=== PATIENT | male | born 1950 | race Caucasian/White ===

== ENCOUNTER 2018-07-01 21:01 | Emergency (ER) | payer OTHER, SELFPAY ==
[2018-07-01] VITALS (14 sets, daily range): BP systolic 113–135; BP diastolic 68–100; PULSE 70–180; RESP 13–63; TEMP 36.8; O2SAT 94–100
--- NOTE | 2018-07-01 21:12 | DI.RAD.S_ITS ---
PROCEDURE: XR CHEST 1V INDICATIONS: chest pain TECHNIQUE: One view of the chest was acquired. COMPARISON: [facility], , CHEST 1 VIEW, 05/27/2012, 13:48. FINDINGS: Surgical changes and devices: 3-lead cardiac pacer device projects over the left chest. Sternotomy wires and a prosthetic cardiac valve are noted. Multiple EKG leads and pads project over the chest. Lungs and pleura: No pleural effusions or pneumothorax. Lungs are clear. Mediastinum: Widening of the cardiac and mediastinal silhouettes is unchanged from prior exam. Bones and chest wall: No suspicious bony lesions. Overlying soft tissues appear unremarkable. IMPRESSION: #1. Unchanged widening of the cardiac and mediastinal silhouettes, which could represent cardiomegaly, pericardial effusion, or a prominent pericardial fat-pad. #2. No focal airspace disease. Dictated by: Lalo Adams M.D. on 07/01/2018 at 23:24 Approved by: Lalo Adams M.D. on 07/01/2018 at 23:25
[2018-07-01] MEDS: AMIODARONE 150 MG/100 ML PIGGYBACK 600 MG IV (21:15)
[2018-07-01 21:20] LABS: Add Manual Diff / Slide Review NO; Basophils Percent Auto 0.6 % (0-2); Eosinophils Percent Auto 1.5 % (2-4); Hemoglobin 13.4 g/dL (13.5-17.5); Lymphocytes Percent Auto 21.8 % (25-40); Mean Corpuscular HGB Conc 34.5 % (30-36); Mean Corpuscular Hemoglobin 33.9 PG (26-34); Mean Corpuscular Volume 98.3 fL (80-100); Monocytes Percent Auto 12.8 % (3-14); Neutrophils Absolute Auto 4400 /uL (3000-5900); Neutrophils Percent Auto 63.3 % (50-75); Platelet Count 239 X10^3/uL (150-400); Red Blood Cell Count 3.96 X10^6/uL (4.5-5.9); Red Cell Distribution Width 13.4 % (11.6-14.8)
[2018-07-01 21:24] LABS: INR 3.1 (0.9-1.3); Prothrombin Time 34.5 SECONDS (10.1-12.7)
[2018-07-01] MEDS: SODIUM CHLORIDE 0.9% 1,000 ML 1000 ML IV (21:25)
[2018-07-01 21:27] LABS: PTT Partial Thromboplastin Tim 52 SECONDS (26.4-36.2)
[2018-07-01 21:29] LABS: Alanine Aminotransferase 48 IU/L (21-72); Albumin 4.4 g/dL (3.5-5.0); Albumin Globulin Ratio 1.4 (1.0-2.8); Alkaline Phosphatase 120 U/L (38-126); Aspartate Aminotransferase 53 IU/L (17-59); BUN Creatinine Ratio 24.6 (6-22); Bilirubin Total 1.1 mg/dL (0.2-1.3); Blood Urea Nitrogen 32 mg/dL (9-20); Calcium 9.3 mg/dL (8.4-10.2); Carbon Dioxide 29 mmol/L (22-32); Chloride 101 mmol/L (98-107); Creatine Kinase 66 U/L (55-170); Estimated Glomerular Filt Rate 54.9 mL/min (>60); Globulin 3.1 g/dL (1.7-4.1); Glucose 109 mg/dL (80-110); HEMOLYSIS < 15 (0-50); Lipase 123 U/L (23-300); Sodium 139 mmol/L (137-145); Total Protein 7.5 g/dL (6.3-8.2)
[2018-07-01] MEDS: AMIODARONE 360 MG/200 ML PIGGYBACK 33.33 MG IV (21:30)
[2018-07-01] MEDS: PROPOFOL 200 MG/20 ML VIAL 50 MG IV (21:35)
[2018-07-01 21:40] LABS: Troponin I 0.045 ng/mL (0.01-0.034)
--- NOTE | 2018-07-01 21:40 | ED.CHESTPAIN ---
HPI - Chest Pain General Chief Complaint: Arrhythmia/Palpitations Stated Complaint: Tacycardia Time Seen by Provider: 07/01/18 21:18 Source: patient Mode of arrival: ambulatory Limitations: no limitations History of Present Illness HPI narrative: Patient is a 68-year-old male who presents with chest pain and heart palpitations. He has a history of chronic AFib and a ventricular fibrillation arrest. He has an ICD placed in 2011. He has a heart rate currently of 180 appears to be in V-tach. He said it started about 20 min ago after he ate ice cream at a concert. He said he fell a little dizzy and lightheaded. This felt very different than his atrial fibrillation. Denies any shortness of breath on no syncope. MD complaint: chest pain Related Data Previous Rx's Medication Instructions Recorded Lancets units TD SEE INSTRUCTIONS #30 11/26/17 carvedilol [Coreg] 6.25 mg PO BID #180 tab 01/14/18 warfarin [Coumadin] 0 PO SEE INSTRUCTIONS #120 tab 01/25/18 Allergies Allergy/AdvReac Type Severity Reaction Status Date / Time phenytoin Allergy Intermediate Unverified 03/02/18 13:09 levetiracetam Allergy Mild RASH Unverified 03/02/18 13:09 Review of Systems Review of Systems All systems reviewed & are unremarkable except as noted in HPI and below Constitutional Denies chills, Denies fever(s), Denies lethargy and Denies weakness ENT Ears, Nose, Mouth, and Throat: Denies change in voice, Denies neck pain and Denies sore throat Cardiovascular Reports as per HPI, Denies dyspnea and Denies dyspnea on exertion Respiratory Denies cough, Denies dyspnea, Denies dyspnea on exertion and Denies wheezing Gastrointestinal Gastrointestinal: Denies abdominal pain, Denies change in bowel habits, Denies diarrhea, Denies nausea and Denies vomiting Genitourinary Denies hematuria, Denies flank pain, Denies urinary incontinence and Denies urinary urgency Musculoskeletal Denies neck pain Integumentary/Breasts Denies pruritus, Denies erythema, Denies rash and Denies wounds Neurologic Denies weakness Allergic/Immunologic Denies wheezing PFSH Medical History Atrial fibrillation (Acute) Cardiac arrest with ventricular fibrillation (Acute) Surgical History History of aortic valve replacement History of aortic valve replacement Implantable cardioverter-defibrillator (ICD) in situ Family History Mother FH: breast cancer in first degree relative Sister FH: breast cancer in first degree relative Social History Smoking Status: Never smoker substance use type: does not use Exam Initial Vital Signs Initial Vital Signs: Vital Signs Temperature 98.2 F 07/01/18 21:05 Pulse Rate 74 07/01/18 21:05 Respiratory Rate 14 07/01/18 21:05 Pulse Oximetry 98 07/01/18 21:05 Const General: cooperative Nutritional Appearance: average body habitus Orientation: alert, awake and oriented x3 HENMT Head: normal to inspection and normocephalic Ears: hearing grossly normal bilaterally Eyes General: appearance normal, both eyes and all related structures Neck Neck: normal visual inspection, full ROM and No JVD Chest Chest: normal inspection of the chest and pacemaker Resp Effort & Inspection: normal respiratory effort, able to speak in complete sentences, no respiratory distress and no use of accessory muscles Auscultation: clear to auscultation bilaterally, no rales, no rhonchi and no wheezes Cardio Rate: tachycardic Rhythm: regular rhythm Heart Sounds: S1 normal and S2 normal GI Palpation: soft, No firm and No tender Skin General: no rashes or lesions noted, No jaundice and No petechiae Neuro General: alert, awake and oriented x3 Cranial Nerves: CN's II-XI intact bilaterally Cognition: normal cognition Speech: speech normal Gait: normal gait Extrem General: normal to inspection, full ROM, capillary refill normal and no clubbing, cyanosis or edema Procedures Procedural Sedation Indication: cardioversion ASA Class: I Mallampati Airway Classification: Class I Time of Last PO Intake: 19:30 Preparation: equipment monitor phototypesetting applied, pulse oximeter, capnometry used, supplemental O2 applied, suction/airway equipment at bedside and IV secured IV Propofol dose (mg): 50 Time of Sedation (Min): 15 ED Sedation Level: Moderate (Concious) Patient Tolerated Procedure: Well Complications: none Misc Procedure Name of Procedure: PROCEDURE: electric cardioversion Technique/Description of procedure performed: PROCEDURE: electric cardioversion REASON FOR PROCEDURE: Ventricular tachycardia PROCEDURE IN DETAIL: The procedure was explained to the patient with risks and benefits including risk of stroke. The patient understands. The pads applied. With synchronized biphasic waveform at 200J, one shock was successful in restoring paced rhythm, briefly for about 4 min. Patient was still under sedation the patient was cardioverted again at 200 joules. Again restored paced rhythm rate 70 IMPRESSION: Successful cardioversion with rastafari of paced rhythm, confirmed with EKG Patient tolerated procedure: Well Complications: none Course Orders Ordered: ED Orders 07/01/18 21:10 B Type Natriuretic Peptide Stat Complete Blood Count AUTO DIFF Stat Comprehensive Metabolic Panel Stat Lipase Stat Partial Thromboplastin Time Stat Prothrombin Time INR Stat Troponin & CK Cardiac Panel Stat 07/01/18 21:12 XR chest 1V Stat EKG-12 Lead Stat Discontinued Medications Carvedilol (Coreg) 6.25 mg PO NOW ONE Stop: 07/01/18 23:14 Last Admin: 07/01/18 23:23 Dose: 6.25 mg Sodium Chloride (Normal Saline 0.9%) 1,000 mls @ 150 mls/hr IV CONT ZACHERY Last Infusion: 07/01/18 23:16 Dose: 0 mls/hr Admin: 07/01/18 21:25 Dose: 1,000 mls/hr Amiodarone HCl/Dextrose (Nexterone) 150 mg in 100 mls @ 600 mls/hr IV NOW ONE; Protocol Stop: 07/01/18 21:22 Last Infusion: 07/01/18 21:25 Dose: 0 mls/hr Admin: 07/01/18 21:15 Dose: 600 mls/hr Amiodarone HCl/Dextrose (Nexterone) 360 mg in 200 mls @ 33.333 mls/hr IV NOW ONE; Protocol Stop: 07/02/18 05:07 Last Admin: 07/01/18 21:30 Dose: 33.33 mls/hr, 33.33 mls/hr Propofol (Diprivan) 50 mg IV NOW ONE Stop: 07/01/18 21:31 Last Admin: 07/01/18 21:35 Dose: 50 mg Vital Signs - 8 hr 07/01/18 21:35 07/01/18 21:40 07/01/18 21:45 Pulse Rate 168 H 72 72 Respiratory Rate 63 H 19 16 Blood Pressure Blood Pressure [Left Arm] 114/73 123/80 H 113/73 Pulse Oximetry 98 100 99 07/01/18 21:50 07/01/18 21:55 07/01/18 22:00 Pulse Rate 72 70 72 Respiratory Rate 14 14 19 Blood Pressure Blood Pressure [Left Arm] 117/76 114/87 H 133/77 H Pulse Oximetry 98 96 95 07/01/18 22:05 07/01/18 22:10 07/01/18 23:11 Pulse Rate 70 74 70 Respiratory Rate 14 14 13 Blood Pressure Blood Pressure [Left Arm] 120/75 128/75 H 120/68 Pulse Oximetry 99 98 94 07/01/18 23:23 07/01/18 23:46 Pulse Rate 71 71 Respiratory Rate 13 Blood Pressure 120/73 128/75 H Blood Pressure [Left Arm] Pulse Oximetry 98 MDM - Chest Pain Medical Records Data Attestation: I reviewed the patient's medical records. Lab Data Attestation: I reviewed the patient's lab results. Result diagrams: 07/01/18 21:10 07/01/18 21:10 Lab Results 07/01/18 07/01/18 07/01/18 Range/Units 21:10 21:10 21:10 WBC 7.0 (4.5-11.0) X10^3/uL RBC 3.96 L (4.5-5.9) X10^6/uL Hgb 13.4 L (13.5-17.5) g/dL Hct 39.0 L (41-53) % MCV 98.3 (80-100) fL MCH 33.9 (26-34) PG MCHC 34.5 (30-36) % RDW 13.4 (11.6-14.8) % Plt Count 239 (150-400) X10^3/uL Neut % (Auto) 63.3 (50-75) % Lymph % (Auto) 21.8 L (25-40) % [place] % (Auto) 12.8 (3-14) % Eos % (Auto) 1.5 L (2-4) % Baso % (Auto) 0.6 (0-2) % Neut # (Auto) 4400 (7752-9196) /uL PT 34.5 H (10.1-12.7) SECONDS INR 3.1 H (0.9-1.3) APTT 52 H (26.4-36.2) SECONDS Sodium 139 (137-145) mmol/L Potassium 4.0 (3.4-5.1) mmol/L Chloride 101 (98-107) mmol/L Carbon Dioxide 29 (22-32) mmol/L BUN 32 H (9-20) mg/dL Creatinine 1.30 H (0.66-1.25) mg/dL Estimated GFR 54.9 L (>60) mL/min BUN/Creatinine Ratio 24.6 H (6-22) Glucose 109 (80-110) mg/dL Calcium 9.3 (8.4-10.2) mg/dL Total Bilirubin 1.1 (0.2-1.3) mg/dL AST 53 (17-59) IU/L ALT 48 (21-72) IU/L Alkaline Phosphatase 120 (38-126) U/L Total Creatine Kinase 66 (55-170) U/L Troponin I 0.045 H (0.01-0.034) ng/mL B-Natriuretic Peptide 307.0 H (<100) Total Protein 7.5 (6.3-8.2) g/dL Albumin 4.4 (3.5-5.0) g/dL Globulin 3.1 (1.7-4.1) g/dL Albumin/Globulin Ratio 1.4 (1.0-2.8) Lipase 123 (23-300) U/L Imaging Data Chest x-ray: Attestation: I personally reviewed and interpreted this imaging study as follows: My impression: No acute process. ICD. ? Coil placement of right-sided lead. No wire fractures. ECG Data Attestation: I personally reviewed and interpreted this ECG as follows: Prior ECG tracings: available for review Interpretation: Wide complex regular rhythm appears to be V-tach versus SVT with aberrancy rate 180. Different from previous EKG which shows a paced rhythm in 2012 EKG 2.: Paced rhythm rate [address] changes similar to previous EKG in 2012 MDM Narrative Medical decision making narrative: Dr. Medel, cardiology at [facility] and telling him has been updated patient's symptoms and test results all. Aware of amiodarone drip and agrees. She is able to review his records recommends his nightly dose of Coreg. She happily accepts him to the hospital. Critical Care Time Critical Care Time: Yes Total Critical Care Time: 30 Attestation: The patient satisfied the definition of criticality in that they had a high probability of imminent deterioration of their conditon. Critical care time includes time spent at the bedside, plus where appropriate: gathering information from family, EMS, old records, caregivers; interpretation of test results; and time spent discussing patient with other physicians Discharge Plan Departure Patient Disposition: [facility] Clinical Impression: Ventricular tachyarrhythmia Discharge Date/Time: 07/01/18 23:52 Interventions: ED Discharge Assessment Last Done: 07/01/18 23:46
[2018-07-01] MEDS: CARVEDILOL 6.25 MG TABLET PO (23:23)
== END 2018-07-01 23:52 | disposition short-term general hospital (02) ==
LOC: ED 21:54 → AC 22:48
PROVIDERS: Emergency Provider Emergency Medicine; PCP Internal Medicine
DX: I47.2 Ventricular tachycardia (principal)
CPT/HCPCS: 36591; 71045; 80053; 82550; 82553; 83690; 83880; 84484; 85025; 85610; 85730; 92960; 93005; 93010; 96361; 96374; 96375; 96376; 99152; 99285; J0282; J2704

== ENCOUNTER → 2019-04-25 14:11 | Outpatient (CLI) | payer OTHER, SELFPAY ==
[2019-04-25 15:07] LABS: Add Manual Diff / Slide Review NO; Basophils Absolute Auto 0 /uL (0-100); Basophils Percent Auto 0.5 % (0-2); Eosinophils Absolute Auto 100 /uL (0-450); Eosinophils Percent Auto 1.9 % (2-4); Hematocrit 34.9 % (41-53); Hemoglobin 11.8 g/dL (13.5-17.5); Lymphocytes Absolute Auto 800 /uL (1100-4500); Lymphocytes Percent Auto 17.5 % (25-40); Mean Corpuscular Hemoglobin 33.4 PG (26-34); Mean Corpuscular Volume 98.4 fL (80-100); Monocytes Absolute Auto 700 /uL (0-900); Neutrophils Absolute Auto 3100 /uL (1500-7000); Neutrophils Percent Auto 65.1 % (50-75); Platelet Count 156 X10^3/uL (150-400); Red Blood Cell Count 3.54 X10^6/uL (4.5-5.9); Red Cell Distribution Width 13.9 % (11.6-14.8); White Blood Cell Count 4.8 X10^3/uL (4.5-11.0)
[2019-04-25 15:45] LABS: HEMOLYSIS < 15 (0-50); Potassium 4.4 mmol/L (3.4-5.1)
[2019-04-25 15:46] LABS: Alanine Aminotransferase 34 IU/L (21-72); Albumin 3.9 g/dL (3.5-5.0); Albumin Globulin Ratio 1.4 (1.0-2.8); Alkaline Phosphatase 84 U/L (38-126); Aspartate Aminotransferase 33 IU/L (17-59); BUN Creatinine Ratio 23.6 (6-22); Blood Urea Nitrogen 26 mg/dL (9-20); Calcium 9.2 mg/dL (8.4-10.2); Carbon Dioxide 27 mmol/L (22-32); Chloride 102 mmol/L (98-107); Estimated Glomerular Filt Rate > 60.0 mL/min (>60); Globulin 2.8 g/dL (1.7-4.1); Glucose 91 mg/dL (80-110); Magnesium 1.7 mg/dL (1.6-2.3); Sodium 137 mmol/L (137-145); Total Protein 6.7 g/dL (6.3-8.2)
[2019-04-25 16:35] LABS: Thyroid Stimulating Hormone 0.27 uIU/mL (0.47-4.68)
== END ==
PROVIDERS: Family Provider Internal Medicine; PCP Internal Medicine; Visit Provider Nurse Practitioner Family
DX: I46.9 Cardiac arrest, cause unspecified (principal)
CPT/HCPCS: 36415; 80053; 83735; 84443; 85025

== ENCOUNTER → 2019-05-08 09:59 | Outpatient (CLI) | payer OTHER, SELFPAY ==
[2019-05-08 11:13] LABS: BUN Creatinine Ratio 23.1 (6-22); Blood Urea Nitrogen 30 mg/dL (9-20); Calcium 9.2 mg/dL (8.4-10.2); Carbon Dioxide 30 mmol/L (22-32); Chloride 104 mmol/L (98-107); Estimated Glomerular Filt Rate 54.9 mL/min (>60); Glucose 107 mg/dL (80-110); HEMOLYSIS < 15 (0-50); Sodium 141 mmol/L (137-145)
[2019-05-08 11:29] LABS: Free T4, Direct Thyroxine 1.37 ng/dL (0.78-2.19)
[2019-05-08 11:43] LABS: Thyroid Stimulating Hormone 0.32 uIU/mL (0.47-4.68)
== END ==
PROVIDERS: PCP Internal Medicine; Visit Provider Internal Medicine
DX: I25.10 Atherosclerotic heart disease of native coronary artery without angina pectoris (principal); I47.2 Ventricular tachycardia; I48.2 Chronic atrial fibrillation; Z79.01 Long term (current) use of anticoagulants
CPT/HCPCS: 36415; 80048; 84439; 84443

== ENCOUNTER 2019-08-04 13:22 | Emergency (ER) | payer OTHER, SELFPAY ==
[2019-08-04] VITALS (18 sets, daily range): BP systolic 97–118; BP diastolic 55–88; PULSE 70–155; RESP 16–94; TEMP 37.1; O2SAT 94–100; BMI 25.8
--- NOTE | 2019-08-04 13:35 | ED.ARRPALP ---
HPI - Arrhythmia/Palpitations General Chief Complaint: Arrhythmia/Palpitations Stated Complaint: defib going off/ wide complex Time Seen by Provider: 08/04/19 13:24 Source: patient and EMS Mode of arrival: EMS Limitations: no limitations History of Present Illness HPI narrative: This is a 69-year-old male who comes to the emergency department with complaint of elevated heart rate. Patient states that he had 2 episodes yesterday where his defibrillator went off. They interrogated his device from home and noted that he was in V-tach and that his defibrillator did convert him to a normal rhythm both times. Patient was started on amiodarone orally yesterday, he takes warfarin daily, he takes carvedilol regularly. Patient has a history of aortic valve replacement replacement x2 the 1st in 1969 5 to 2004. He also had a VFib arrest 7 years prior with return of circulation. He had a subsequent stroke. And states that he has had some partial complex seizures in the past secondary to that but none recently. Patient denies any other medications. Denies any tobacco, no alcohol or illicit drugs. 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 Related Data Home Medications Medication Instructions Recorded Confirmed aspirin 81 mg tablet,delayed 81 mg PO DAILY 06/13/19 08/04/19 release carvedilol 25 mg tablet 50 mg PO BID 07/10/19 08/04/19 amiodarone 200 mg PO BID 08/04/19 08/04/19 vitamin K2 1 tab PO DAILY 08/04/19 08/04/19 Previous Rx's Medication Instructions Recorded warfarin 5 mg tablet 5 mg PO SEE INSTRUCTIONS #180 tab 08/11/18 Lancets #30 each 11/03/18 prothrombin time/INR test metr #1 each 11/08/18 Coagucheck XS Test Strips #20 each 04/04/19 triamcinolone acetonide 0.5 % 1 applictn TOP BID #15 gram 06/13/19 topical ointment Allergies Allergy/AdvReac Type Severity Reaction Status Date / Time phenytoin Allergy Intermediate Verified 07/10/19 09:58 levetiracetam Allergy Mild RASH Verified 07/10/19 09:58 rosuvastatin AdvReac brain Verified 07/10/19 09:58 fog/aerobic decline Review of Systems Review of Systems ROS Unobtainable: All systems reviewed & are unremarkable except as noted in HPI and below Constitutional Constitutional: Denies chills, Denies fever(s), Denies lethargy and Denies weakness Cardiovascular Cardiovascular: Denies chest pain, Denies diaphoresis, Denies syncope, Reports rapid heart rate, Reports edema, Denies irregular heart rhythm, Denies lightheadedness, Denies radiating jaw, neck or arm pain, Reports palpitations, Denies dyspnea, Denies dyspnea on exertion and Denies orthopnea Respiratory Respiratory: Denies change in phlegm color, Denies chest congestion, Denies cough, Denies dyspnea, Denies dyspnea on exertion and Denies wheezing Gastrointestinal Gastrointestinal: Denies abdominal pain, Denies change in bowel habits, Reports diarrhea (1x today), Denies nausea and Denies vomiting Genitourinary Genitourinary: Denies hematuria, Denies difficulty urinating, Denies flank pain, Denies urinary frequency, Denies urinary hesitancy, Denies urinary incontinence and Denies urinary urgency Musculoskeletal Musculoskeletal: Denies back pain Neurologic Neurologic: Denies syncope and Denies weakness Endocrine Endocrine: Reports palpitations Allergic/Immunologic Allergic/Immunologic: Denies wheezing PFSH Medical History 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) Cardiac defibrillator in place (Inactive 03/16/13) Cardiomyopathy (Chronic 03/16/13) Chronic atrial fibrillation (Chronic 03/11/12) Coronary arteriosclerosis (Chronic) History of cardiac arrest (Inactive 03/11/12) History of ventricular fibrillation (Inactive 03/11/12) 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) correction current use of anticoagulant therapy (Chronic 09/01/02) Seizure disorder (Chronic 09/01/02) Status post aortic valve replacement (Chronic 06/19/14) Ventricular tachyarrhythmia (Inactive) Surgical History History of aortic valve replacement Implantable cardioverter-defibrillator (ICD) in situ Family History Mother FH: breast cancer in first degree relative Sister FH: breast cancer in first degree relative Social History (Updated 07/01/18 @ 22:41 by Estephania Ovalle DO) Smoking Status: Never smoker substance use type: does not use Family History Mother FH: breast cancer in first degree relative Sister FH: breast cancer in first degree relative Social History Smoking Status: Never smoker substance use type: does not use Exam Narrative Exam Narrative: GENERAL: Alert and oriented x three,, well-appearing male in no acute distress. HEENT: Head normocephalic, atraumatic, EOMI, pupils reactive, face symmetric, moist mucous membranes NECK: Supple, full range of motion CARDIOVASCULAR: Tachycardic and Regular rate and rhythm without murmurs, rubs or gallops. No JVD. + edema bilateral lower extremities. I am able to palpate patient's defibrillator in his chest. RESPIRATORY: Breath sounds equal bilaterally, no wheezes rales or rhonchi. ABDOMEN: Soft, nontender. Normoactive bowel sounds all 4 quadrants. No guarding or rebound, rigidity, no mass : No CVA tenderness EXTREMITIES: Normal range of motion.. Neurovascularly intact NEUROLOGICAL: Cranial nerves II through XII grossly intact. Moving all extremities SKIN: Warm, dry, no petechiae, no rashes or lesions. Initial Vital Signs Initial Vital Signs: Vital Signs Pulse Rate 155 H 08/04/19 13:15 Respiratory Rate 22 08/04/19 13:15 Blood Pressure 118/77 08/04/19 13:15 Pulse Oximetry 95 08/04/19 13:15 Course Orders Ordered: ED Orders 08/04/19 13:15 Basic Metabolic Panel Stat Complete Blood Count AUTO DIFF Stat Magnesium Stat Partial Thromboplastin Time Stat Prothrombin Time INR Stat Thyroid Stimulating Hormone Stat Troponin & CK Cardiac Panel Stat 08/04/19 13:34 XR chest 1V Stat EKG-12 Lead Stat 08/04/19 15:10 Troponin & CK Cardiac Panel Stat 08/04/19 15:36 EKG-12 Lead Stat Discontinued Medications Amiodarone HCl (Pacerone) 150 mg IV NOW ONE Stop: 08/04/19 15:31 Last Admin: 08/04/19 16:43 Dose: Not Given Documented by: BONY Etomidate (Amidate) 8 mg IV NOW ONE Stop: 08/04/19 15:30 Last Admin: 08/04/19 15:40 Dose: 8 mg Documented by: BONY Sodium Chloride (Normal Saline 0.9%) 1,000 mls @ 150 mls/hr IV CONT ZACHERY Last Infusion: 08/04/19 17:54 Dose: 0 mls/hr Documented by: Admin: 08/04/19 13:55 Dose: 150 mls/hr Documented by: BONY Amiodarone HCl/Dextrose (Nexterone) 360 mg in 200 mls @ 33.333 mls/hr IV NOW ONE; Protocol Stop: 08/04/19 19:40 Last Titration: 08/04/19 17:53 Dose: 0 mls/hr, 0 mls/hr Documented by: Admin: 08/04/19 14:12 Dose: 33.3 mls/hr, 33.3 mls/hr Documented by: BONY Amiodarone HCl/Dextrose (Nexterone) 150 mg in 100 mls @ 600 mls/hr IV NOW ONE; Protocol Stop: 08/04/19 16:52 Last Infusion: 08/04/19 16:58 Dose: 0 mls/hr Documented by: Admin: 08/04/19 16:47 Dose: 600 mls/hr Documented by: BONY Vital Signs Vital signs: Vital Signs - 8 hr 08/04/19 13:15 08/04/19 13:30 08/04/19 13:45 Temperature 98.7 F Pulse Rate 155 H 151 H 151 H Respiratory Rate 22 94 H 20 Blood Pressure 118/77 Blood Pressure [Right Arm] 118/77 107/79 107/75 Pulse Oximetry 95 94 95 08/04/19 14:00 08/04/19 14:34 08/04/19 15:31 Temperature Pulse Rate 152 H 151 H 153 H Respiratory Rate 20 21 27 H Blood Pressure Blood Pressure [Right Arm] 100/77 104/74 105/71 Pulse Oximetry 95 96 95 08/04/19 15:35 08/04/19 15:40 08/04/19 15:42 Temperature Pulse Rate 153 H 150 H 76 Respiratory Rate 22 24 30 H Blood Pressure Blood Pressure [Right Arm] 104/76 101/76 104/80 Pulse Oximetry 95 95 94 08/04/19 15:45 08/04/19 15:50 08/04/19 15:55 Temperature Pulse Rate 72 72 74 Respiratory Rate 35 H 30 H 34 H Blood Pressure Blood Pressure [Right Arm] 107/88 104/87 107/66 Pulse Oximetry 95 95 95 08/04/19 15:59 08/04/19 16:01 08/04/19 16:02 Temperature Pulse Rate 153 H 74 78 Respiratory Rate 16 20 30 H Blood Pressure Blood Pressure [Right Arm] 107/66 104/77 Pulse Oximetry 95 95 08/04/19 16:06 08/04/19 16:49 08/04/19 17:46 Temperature Pulse Rate 72 70 70 Respiratory Rate 32 H 20 18 Blood Pressure Blood Pressure [Right Arm] 100/57 L 97/55 L 110/78 Pulse Oximetry 95 96 98 MDM - Arrhythmia/Palpitations Lab Data Attestation: I reviewed the patient's lab results. Result diagrams: 08/04/19 13:15 08/04/19 13:15 Labs: Lab Results 08/04/19 08/04/19 08/04/19 Range/Units 13:15 13:15 13:15 WBC 5.2 (4.5-11.0) X10^3/uL RBC 3.83 L (4.5-5.9) X10^6/uL Hgb 13.0 L (13.5-17.5) g/dL Hct 37.5 L (41-53) % MCV 97.9 (80-100) fL MCH 34.0 (26-34) PG MCHC 34.7 (30-36) % RDW 13.7 (11.6-14.8) % Plt Count 148 L (150-400) X10^3/uL Neut % (Auto) 63.8 (50-75) % Lymph % (Auto) 12.8 L (25-40) % Kleberg % (Auto) 22.3 H (3-14) % Eos % (Auto) 0.8 L (2-4) % Baso % (Auto) 0.3 (0-2) % Neut # (Auto) 3300 (0590-1242) /uL Lymph # (Auto) 700 L (9066-3536) /uL Kleberg # (Auto) 1200 H (0-900) /uL Eos # (Auto) 0 (0-450) /uL Baso # (Auto) 0 (0-100) /uL PT 28.7 H (10.1-12.7) SECONDS INR 2.4 H (0.9-1.3) APTT 44 H D (26.4-36.2) SECONDS Sodium 133 L (137-145) mmol/L Potassium 4.1 (3.4-5.1) mmol/L Chloride 99 (98-107) mmol/L Carbon Dioxide 23 (22-32) mmol/L BUN 24 H (9-20) mg/dL Creatinine 1.10 (0.66-1.25) mg/dL Estimated GFR > 60.0 (>60) mL/min BUN/Creatinine Ratio 21.8 (6-22) Glucose 164 H (80-110) mg/dL Calcium 8.5 (8.4-10.2) mg/dL Magnesium 1.7 (1.6-2.3) mg/dL Total Creatine Kinase 33 L (55-170) U/L CK-MB (CK-2) TNP CK-MB (CK-2) Rel Index TNP Troponin I 0.055 H (0.01-0.034) ng/mL TSH (0.47-4.68) uIU/mL 08/04/19 08/04/19 Range/Units 13:15 15:10 WBC (4.5-11.0) X10^3/uL RBC (4.5-5.9) X10^6/uL Hgb (13.5-17.5) g/dL Hct (41-53) % MCV (80-100) fL MCH (26-34) PG MCHC (30-36) % RDW (11.6-14.8) % Plt Count (150-400) X10^3/uL Neut % (Auto) (50-75) % Lymph % (Auto) (25-40) % Kleberg % (Auto) (3-14) % Eos % (Auto) (2-4) % Baso % (Auto) (0-2) % Neut # (Auto) (1252-4448) /uL Lymph # (Auto) (2621-8531) /uL Kleberg # (Auto) (0-900) /uL Eos # (Auto) (0-450) /uL Baso # (Auto) (0-100) /uL PT (10.1-12.7) SECONDS INR (0.9-1.3) APTT (26.4-36.2) SECONDS Sodium (137-145) mmol/L Potassium (3.4-5.1) mmol/L Chloride (98-107) mmol/L Carbon Dioxide (22-32) mmol/L BUN (9-20) mg/dL Creatinine (0.66-1.25) mg/dL Estimated GFR (>60) mL/min BUN/Creatinine Ratio (6-22) Glucose (80-110) mg/dL Calcium (8.4-10.2) mg/dL Magnesium (1.6-2.3) mg/dL Total Creatine Kinase 27 L (55-170) U/L CK-MB (CK-2) TNP CK-MB (CK-2) Rel Index TNP Troponin I 0.061 H (0.01-0.034) ng/mL TSH 0.35 L (0.47-4.68) uIU/mL Imaging Data Chest x-ray: Radiologist's impression: [address] [address] XRay Report Signed Patient: Harish Roper WMR#: [id number] : 1950Acct:[id number] Age/Sex: 69 / MDate of Service: 08/04/19 Loc: ED Accession Number: [id number] Procedure: XR chest 1V Ordering Provider: Celestina Lozano D.O. PROCEDURE: XR CHEST 1V INDICATIONS: arrythmia TECHNIQUE: One view of the chest was acquired. [facility], 21:16. FINDINGS: Surgical changes and devices: Cardiac AICD, sternotomy wires and cardiac valvular prosthesis. Lungs and pleura: No acute consolidation. Mild patchy retrocardiac opacity probably atelectasis versus low-grade aspiration. Scattered subsegmental atelectasis and/or scarring. Trace left pleural effusion No pneumothorax. Mediastinum: Mediastinal contours appear normal. Heart size is probably enlarged accounting for technique. Bones and chest wall: No suspicious bony lesions. Overlying soft tissues appear unremarkable. IMPRESSION: Trace left pleural effusion. Mild patchy retrocardiac opacity as above. Elsewhere, no acute consolidation. Dictated by: Harrison Cordova M.D. on 08/04/2019 at 13:47 Approved by: Harrison Cordova M.D. on 08/04/2019 at 13:50 ECG Data Attestation: I personally reviewed and interpreted this ECG as follows: Prior ECG tracings: available for review Interpretation: Patient has wide complex tachycardia rate of 149 QRS of 249 and QTC of 406. Patient with prior EKG from 07/01/2018 is similar to today's when ST segment changes with rapid rate. EKG 2. Shows atrial paced rhythm with a rate of 72 P are 147 QRS of 174 and QTC of 522. MDM Narrative Medical decision making narrative: Patient comes in with ventricular tachycardia that appears to be wide complex. Patient a defibrillator it fired twice yesterday but not today. It was interrogated yesterday and showed 2 episodes of V-tach which were terminated by his defibrillator firing. He was started on amiodarone 200 mg twice daily yesterday. He was started on these medications over the phone as well as his interrogation of his defibrillator was over the phone from his home. He was not seen in the hospital yesterday. Labs do not show major abnormalities patient does have an indeterminate troponin repeat is 0.061 which is slightly higher. Patient is asymptomatic after cardioversion. After extensive discussion with Dr. Thomas, EP cardiology for patient's cardiology team he recommends loading the patient with additional 150 mg of apnea on her, he received 150 mg and route with EMS he did recommend continuing drip. He was able to review patient's EKGs pre and post defibrillation, as well as patient's interrogation was sent to Cardiology to be reviewed. We reviewed his medications today, his labs and current clinical findings. If patient would like to spend the night he could and then be discharged in the morning although if patient preferred to return home he would recommend 200 mg p.o. t.i.d.. He did not recommend continuing to follow patient's troponin as he has had multiple defibrillations over the last 2 days and this will likely continue to cause it to elevate. Patient has not had any chest pain or pressure or shortness of breath or other symptoms concerning for ACS at this time. [employer] tack the female did come to the department and decrease the threshold for his defibrillator to 150 beats per minute to attempt to overdrive pace and then fire if he continues to have tachycardia. Discharge Plan Departure Patient Disposition: Home Clinical Impression: Ventricular tachycardia Discharge Date/Time: 08/04/19 18:12 Instructions: DI for Ventricular Tachycardia Activity Restrictions/Additional Instructions: Follow up with Cardiology on Wednesday. Call for an exact appointment time. Cardiology recommends increasing your Amiodarone to 200mg three times daily. Continue your other home medications as prescribed. Your Defibrillator as been reprogramed to 150 range for defibrillation. Return to the emergency department for recurrent shocks, persistent palpitations or tachycardia, lightheadedness, chest pain, shortness of breath, persistent nausea, new swelling in your lower extremities, black or bloody stools or other new or concerning symptoms. Prescriptions: No Action warfarin [Coumadin] 5 mg tablet 5 mg PO SEE INSTRUCTIONS Qty: 180 RF: 3 (DME) Lancets 0 .Route .MEDSUPPLY Qty: 30 RF: 6 (DME) prothrombin time/INR test metr [Coaguchek XS] misc See Dose Instructions .ROUTE .MEDSUPPLY Qty: 1 RF: 0 (DME) Coagucheck XS Test Strips Qty: 20 RF: 11 aspirin 81 mg tablet,delayed release (DR/EC) 81 mg PO DAILY RF: 0 triamcinolone acetonide 0.5 % ointment 1 applictn TOP BID Qty: 15 RF: 1 carvedilol 25 mg tablet 50 mg PO BID RF: 0 amiodarone 200 mg Tablet 200 mg PO BID RF: 0 vitamin K2 1 tab PO DAILY RF: 0 Referrals: Stevie Ritchie MD [Primary Care Provider] -
[2019-08-04 13:45] LABS: Add Manual Diff / Slide Review NO; Basophils Absolute Auto 0 /uL (0-100); Basophils Percent Auto 0.3 % (0-2); Eosinophils Absolute Auto 0 /uL (0-450); Eosinophils Percent Auto 0.8 % (2-4); Hematocrit 37.5 % (41-53); Lymphocytes Absolute Auto 700 /uL (1100-4500); Lymphocytes Percent Auto 12.8 % (25-40); Mean Corpuscular HGB Conc 34.7 % (30-36); Mean Corpuscular Volume 97.9 fL (80-100); Monocytes Absolute Auto 1200 /uL (0-900); Monocytes Percent Auto 22.3 % (3-14); Neutrophils Absolute Auto 3300 /uL (1500-7000); Neutrophils Percent Auto 63.8 % (50-75); Platelet Count 148 X10^3/uL (150-400); Red Blood Cell Count 3.83 X10^6/uL (4.5-5.9); Red Cell Distribution Width 13.7 % (11.6-14.8); White Blood Cell Count 5.2 X10^3/uL (4.5-11.0)
[2019-08-04 13:46] LABS: INR 2.4 (0.9-1.3); Prothrombin Time 28.7 SECONDS (10.1-12.7)
[2019-08-04 13:48] LABS: PTT Partial Thromboplastin Tim 44 SECONDS (26.4-36.2)
[2019-08-04 13:53] LABS: BUN Creatinine Ratio 21.8 (6-22); Blood Urea Nitrogen 24 mg/dL (9-20); Calcium 8.5 mg/dL (8.4-10.2); Carbon Dioxide 23 mmol/L (22-32); Chloride 99 mmol/L (98-107); Creatine Kinase 33 U/L (55-170); Estimated Glomerular Filt Rate > 60.0 mL/min (>60); Glucose 164 mg/dL (80-110); HEMOLYSIS 20 (0-50); Magnesium 1.7 mg/dL (1.6-2.3); Potassium 4.1 mmol/L (3.4-5.1); Sodium 133 mmol/L (137-145)
[2019-08-04] MEDS: SODIUM CHLORIDE 0.9% 1,000 ML 150 ML IV (13:55)
[2019-08-04 14:05] LABS: Troponin I 0.055 ng/mL (0.01-0.034)
[2019-08-04] MEDS: AMIODARONE 360 MG/200 ML PIGGYBACK 33.3 MG IV (14:12)
[2019-08-04 15:19] LABS: Thyroid Stimulating Hormone 0.35 uIU/mL (0.47-4.68)
[2019-08-04 15:31] LABS: Creatine Kinase 27 U/L (55-170)
[2019-08-04 15:40] LABS: Troponin I 0.061 ng/mL (0.01-0.034)
[2019-08-04] MEDS: ETOMIDATE 2 MG/ML 10 ML VIAL 8 MG IV (15:40)
[2019-08-04] MEDS: AMIODARONE 150 MG/100 ML PIGGYBACK 600 MG IV (16:47)
== END 2019-08-04 18:12 | disposition home or self-care (01) ==
PROVIDERS: Emergency Provider Emergency Medicine; PCP Internal Medicine
DX: I47.2 Ventricular tachycardia (principal); Z95.810 Presence of automatic (implantable) cardiac defibrillator
CPT/HCPCS: 36415; 36591; 71045; 80048; 82550; 83735; 84443; 84484; 85025; 85610; 85730; 92960; 93005; 93010; 94770; 96365; 96366; 96375; 99285; 99291; J0282

== ENCOUNTER 2019-08-07 02:19 | Emergency (ER) | payer OTHER, SELFPAY ==
[2019-08-07 02:26] VITALS: BP 120/77; PULSE 71; RESP 14; TEMP 36.7; O2SAT 95; BMI 24.3
--- NOTE | 2019-08-07 02:26 | ED.GENADULT ---
HPI - General Adult General Chief complaint: Arrhythmia/Palpitations Stated complaint: Vtach Time Seen by Provider: 08/07/19 02:22 Source: patient Mode of arrival: EMS Limitations: no limitations History of Present Illness HPI narrative: Patient is a 69-year-old male with a prior history of aortic valve replacement. He also has a [employer] pacemaker/defibrillator in place. He is 100% av paced. Within the past week patient has been seen here in the emergency department for ventricular tachycardia. Was given amiodarone and cardioverted. This was confirmed after interrogating his pacemaker. After this visit his amiodarone was increased to 200 mg 3 times a day. His device was also adjusted to have a threshold of 150 was decreased from 170. Patient states that this evening he had another episode of tachycardia. He was feeling the palpitations. Did have some mild chest pressure during the time and mild dizziness. No shortness of breath. he was unsure as to exactly how long the symptoms lasted but he states that it was longer than 30 minutes. EMS was called. EMS reports that upon their arrival he did have heart rate between 130 and 150 on their monitor. They stated that prior to any of their interventions the patient ?self converted back to a rate of 70. Patient states that he did not feel the defibrillator go off. At the time of my evaluation upon arrival to the emergency department patient had no symptoms. Related Data Home Medications Medication Instructions Recorded Confirmed aspirin 81 mg tablet,delayed 81 mg PO DAILY 06/13/19 08/04/19 release carvedilol 25 mg tablet 50 mg PO BID 07/10/19 08/04/19 amiodarone 200 mg PO BID 08/04/19 08/04/19 vitamin K2 1 tab PO DAILY 08/04/19 08/04/19 Previous Rx's Medication Instructions Recorded warfarin 5 mg tablet 5 mg PO SEE INSTRUCTIONS #180 tab 08/11/18 Lancets #30 each 11/03/18 prothrombin time/INR test metr #1 each 11/08/18 Coagucheck XS Test Strips #20 each 04/04/19 triamcinolone acetonide 0.5 % 1 applictn TOP BID #15 gram 06/13/19 topical ointment Allergies Allergy/AdvReac Type Severity Reaction Status Date / Time phenytoin Allergy Intermediate Verified 07/10/19 09:58 levetiracetam Allergy Mild RASH Verified 07/10/19 09:58 rosuvastatin AdvReac brain Verified 07/10/19 09:58 fog/aerobic decline Review of Systems Constitutional Constitutional: Denies fever(s) and Denies headache(s) ENT Ears, Nose, Mouth, and Throat: Denies headache(s) Cardiovascular Cardiovascular: Denies chest pain, Reports rapid heart rate, Reports palpitations and Denies dyspnea Respiratory Respiratory: Denies dyspnea Gastrointestinal Gastrointestinal: Denies abdominal pain, Denies nausea and Denies vomiting Genitourinary Genitourinary: Denies dysuria Musculoskeletal Musculoskeletal: Denies back pain Integumentary/Breasts Skin/Breast: Denies lesions and Denies rash Neurologic Neurologic: Denies behavioral changes, Denies headache(s) and Denies focal weakness Psychiatric Psychiatric: Denies behavioral changes Endocrine Endocrine: Reports palpitations Hematologic/Lymphatic Hematologic/Lymphatic: Denies easy bleeding and Denies easy bruising Allergic/Immunologic Allergic/Immunologic: Denies urticaria PFSH Medical History 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) Cardiac defibrillator in place (Inactive 03/16/13) Cardiomyopathy (Chronic 03/16/13) Chronic atrial fibrillation (Chronic 03/11/12) Coronary arteriosclerosis (Chronic) History of cardiac arrest (Inactive 03/11/12) History of ventricular fibrillation (Inactive 03/11/12) 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) 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 (Chronic 09/01/02) Seizure disorder (Chronic 09/01/02) Status post aortic valve replacement (Chronic 06/19/14) Ventricular tachyarrhythmia (Inactive) Social History Smoking Status: Never smoker substance use type: does not use Exam Initial Vital Signs Initial Vital Signs: Vital Signs Temperature 98.0 F 08/07/19 02:26 Pulse Rate 71 08/07/19 02:26 Respiratory Rate 14 08/07/19 02:26 Blood Pressure 120/77 08/07/19 02:26 Pulse Oximetry 95 08/07/19 02:26 Const General: cooperative, comfortable, well developed and well groomed Orientation: alert, awake and oriented x3 HENMT Head: normal to inspection and normocephalic Resp Effort & Inspection: normal respiratory effort Auscultation: clear to auscultation bilaterally Cardio Rate: regular rate Rhythm: regular rhythm GI Inspection: non-distended Palpation: soft and No firm Skin Lesions: no lesions Rashes: no rashes Neuro General: alert and awake Cognition: normal cognition Speech: speech normal Extrem General: normal to inspection and capillary refill normal Psych Appearance: grossly normal and well kempt Course Orders Ordered: ED Orders 08/07/19 02:26 EKG-12 Lead Stat 08/07/19 02:45 B Type Natriuretic Peptide Stat Complete Blood Count AUTO DIFF Stat Comprehensive Metabolic Panel Stat Lipase Stat Partial Thromboplastin Time Stat Prothrombin Time INR Stat 08/07/19 04:07 XR chest 1V Stat Discontinued Medications Lorazepam (Ativan) 0.5 mg PO NOW ONE Stop: 08/07/19 03:56 Last Admin: 08/07/19 04:04 Dose: 0.5 mg Documented by: MARIA TERESA Vital Signs Vital signs: Vital Signs - 8 hr 08/07/19 02:26 08/07/19 02:32 08/07/19 04:21 Temperature 98.0 F Pulse Rate 71 72 70 Respiratory Rate 14 18 23 Blood Pressure 120/77 Blood Pressure [Left Arm] 117/76 105/64 Pulse Oximetry 95 95 08/07/19 04:30 Temperature Pulse Rate 71 Respiratory Rate 19 Blood Pressure Blood Pressure [Left Arm] 103/63 Pulse Oximetry Medical Decision Making Lab Data Lab results reviewed: Yes I reviewed the patient's lab results. Result diagrams: 08/07/19 02:45 08/07/19 02:45 Labs: Lab Results 08/07/19 08/07/19 08/07/19 Range/Units 02:45 02:45 02:45 WBC 6.2 (4.5-11.0) X10^3/uL RBC 3.75 L (4.5-5.9) X10^6/uL Hgb 12.6 L (13.5-17.5) g/dL Hct 36.1 L (41-53) % MCV 96.3 (80-100) fL MCH 33.6 (26-34) PG MCHC 34.9 (30-36) % RDW 13.8 (11.6-14.8) % Plt Count 148 L (150-400) X10^3/uL Neut % (Auto) 67.1 (50-75) % Lymph % (Auto) 11.9 L (25-40) % [place] % (Auto) 17.4 H (3-14) % Eos % (Auto) 3.0 (2-4) % Baso % (Auto) 0.6 (0-2) % Neut # (Auto) 4200 (3162-6998) /uL Lymph # (Auto) 700 L (3609-4951) /uL [place] # (Auto) 1100 H (0-900) /uL Eos # (Auto) 200 (0-450) /uL Baso # (Auto) 0 (0-100) /uL PT 36.0 H D (10.1-12.7) SECONDS INR 3.0 H (0.9-1.3) APTT 44 H (26.4-36.2) SECONDS Sodium 131 L (137-145) mmol/L Potassium 4.0 (3.4-5.1) mmol/L Chloride 99 (98-107) mmol/L Carbon Dioxide 26 (22-32) mmol/L BUN 26 H (9-20) mg/dL Creatinine 1.20 (0.66-1.25) mg/dL Estimated GFR > 60.0 (>60) mL/min BUN/Creatinine Ratio 21.7 (6-22) Glucose 112 H (80-110) mg/dL Calcium 8.4 (8.4-10.2) mg/dL Total Bilirubin 1.1 (0.2-1.3) mg/dL AST 68 H (17-59) IU/L ALT 65 (21-72) IU/L Alkaline Phosphatase 106 (38-126) U/L B-Natriuretic Peptide 365 H (<100) Total Protein 6.2 L (6.3-8.2) g/dL Albumin 3.2 L (3.5-5.0) g/dL Globulin 3.0 (1.7-4.1) g/dL Albumin/Globulin Ratio 1.1 (1.0-2.8) Lipase 78 (23-300) U/L Imaging Data Chest x-ray: Attestation: I personally reviewed and interpreted this imaging study as follows: My impression: Enlarged heart, pacemaker wires in place No acute changes ECG Data Attestation: I personally reviewed and interpreted this ECG as follows: Interpretation: Atrial paced Ventricular paced Ventricular rate is 70 MDM Narrative Medical decision making narrative: Patient's labs unremarkable. He has had a paced rate in the 70s since arrival. Interrogation of his pacemaker does show that he had an event of ventricular tachycardia this evening. I did discuss the case with Dr. Phoenix with Cardiology at [facility] who stated that the patient could be transferred under the medicine service to be evaluated by electrophysiology tomorrow morning. I discussed this with the patient. 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 Patient opted to be transferred. Patient is stable for transport. Dr Donahue at [facility] accepts. We appreciate their help. Discharge Plan Departure Patient Disposition: [facility] Clinical Impression: Ventricular tachycardia Prescriptions: No Action warfarin [Coumadin] 5 mg tablet 5 mg PO SEE INSTRUCTIONS Qty: 180 RF: 3 (DME) Lancets 0 .Route .MEDSUPPLY Qty: 30 RF: 6 (DME) prothrombin time/INR test metr [Coaguchek XS] misc See Dose Instructions .ROUTE .MEDSUPPLY Qty: 1 RF: 0 (DME) Coagucheck XS Test Strips Qty: 20 RF: 11 aspirin 81 mg tablet,delayed release (DR/EC) 81 mg PO DAILY RF: 0 triamcinolone acetonide 0.5 % ointment 1 applictn TOP BID Qty: 15 RF: 1 carvedilol 25 mg tablet 50 mg PO BID RF: 0 amiodarone 200 mg Tablet 200 mg PO BID RF: 0 vitamin K2 1 tab PO DAILY RF: 0 Referrals: Stevie Ritchie MD [Primary Care Provider] -
[2019-08-07 02:32] VITALS: BP 117/76; PULSE 72; RESP 18; O2SAT 95
--- NOTE | 2019-08-07 02:39 | PC.NURSE ---
pacemaker interrogated and waiting for the results to be faxed. provider aware and no new orders at this time.
[2019-08-07 02:57] LABS: Basophils Percent Auto 0.6 % (0-2); Hematocrit 36.1 % (41-53); Hemoglobin 12.6 g/dL (13.5-17.5); Lymphocytes Percent Auto 11.9 % (25-40); Mean Corpuscular HGB Conc 34.9 % (30-36); Mean Corpuscular Hemoglobin 33.6 PG (26-34); Mean Corpuscular Volume 96.3 fL (80-100); Monocytes Percent Auto 17.4 % (3-14); Neutrophils Percent Auto 67.1 % (50-75); Platelet Count 148 X10^3/uL (150-400); Red Blood Cell Count 3.75 X10^6/uL (4.5-5.9); Red Cell Distribution Width 13.8 % (11.6-14.8); White Blood Cell Count 6.2 X10^3/uL (4.5-11.0)
[2019-08-07 02:58] LABS: Add Manual Diff / Slide Review NO; Basophils Absolute Auto 0 /uL (0-100); Eosinophils Absolute Auto 200 /uL (0-450); Lymphocytes Absolute Auto 700 /uL (1100-4500); Monocytes Absolute Auto 1100 /uL (0-900); Neutrophils Absolute Auto 4200 /uL (1500-7000)
[2019-08-07 03:03] LABS: PTT Partial Thromboplastin Tim 44 SECONDS (26.4-36.2)
[2019-08-07 03:05] LABS: Alanine Aminotransferase 65 IU/L (21-72); Albumin 3.2 g/dL (3.5-5.0); Albumin Globulin Ratio 1.1 (1.0-2.8); Alkaline Phosphatase 106 U/L (38-126); Aspartate Aminotransferase 68 IU/L (17-59); BUN Creatinine Ratio 21.7 (6-22); Bilirubin Total 1.1 mg/dL (0.2-1.3); Blood Urea Nitrogen 26 mg/dL (9-20); Calcium 8.4 mg/dL (8.4-10.2); Carbon Dioxide 26 mmol/L (22-32); Chloride 99 mmol/L (98-107); Estimated Glomerular Filt Rate > 60.0 mL/min (>60); Glucose 112 mg/dL (80-110); HEMOLYSIS < 15 (0-50); Lipase 78 U/L (23-300); Sodium 131 mmol/L (137-145); Total Protein 6.2 g/dL (6.3-8.2)
[2019-08-07 03:15] LABS: B Type Natriuretic Peptide 365 (<100)
[2019-08-07] MEDS: LORazepam 0.5 MG TABLET PO (04:04)
--- NOTE | 2019-08-07 04:07 | DI.RAD.S_ITS ---
PROCEDURE: XR CHEST 1V INDICATIONS: eval for PNA TECHNIQUE: One view of the chest was acquired. COMPARISON: [facility], CR, XR CHEST 1V, 08/04/2019, 13:39. FINDINGS: Surgical changes and devices: Pacemaker and sternal wires are present. All replacement is noted. Lungs and pleura: Mild appearance of increased pulmonary vascularity. Slightly increased right basilar opacity. Mediastinum: Mediastinal contours appear normal. Heart size is enlarged. Bones and chest wall: No suspicious bony lesions. Overlying soft tissues appear unremarkable. IMPRESSION: Cardiomegaly with increased vascularity suggestive of edema. Slight increase right basilar opacity is present possibly representing developing pneumonia. This also could represent focal edema or atelectasis. Dictated by: Janell Izaguirre M.D. on 08/07/2019 at 8:24 Approved by: Janell Izaguirre M.D. on 08/07/2019 at 8:25
[2019-08-07 04:21] VITALS: BP 105/64; PULSE 70; RESP 23
--- NOTE | 2019-08-07 04:22 | PC.NURSE ---
Pt reports he's worried about infection-- reports he's had fevers that broke 2 days ago with productive cough. Dr Muir notified, CXR ordered.
[2019-08-07 04:30] VITALS: BP 103/63; PULSE 71; RESP 19
[2019-08-07 05:00] VITALS: BP 83/56; PULSE 79; RESP 22; O2SAT 94
[2019-08-07] MEDS: ALBUTEROL 2.5 MG/3 ML NEB (ADULT) INH (05:36)
[2019-08-07 05:37] VITALS: O2SAT 96
--- NOTE | 2019-08-07 05:41 | PC.NURSE ---
Pt being transfer to [facility], because we do not have cardiology services . 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 Pt is a [place] pt and We contacted them and the transfer was cleared.
== END 2019-08-07 06:04 | disposition short-term general hospital (02) ==
PROVIDERS: Emergency Provider Emergency Medicine; PCP Internal Medicine
DX: I47.2 Ventricular tachycardia (principal)
CPT/HCPCS: 71045; 80053; 83690; 83880; 85025; 85610; 85730; 93005; 94640; 99283; 99285; J7613

== ENCOUNTER → 2019-09-19 14:54 | Outpatient (CLI) | payer OTHER, SELFPAY ==
[2019-09-19 16:01] LABS: BUN Creatinine Ratio 20.6 (6-22); Blood Urea Nitrogen 33 mg/dL (9-20); Calcium 8.8 mg/dL (8.4-10.2); Carbon Dioxide 28 mmol/L (22-32); Chloride 101 mmol/L (98-107); Estimated Glomerular Filt Rate 43.1 mL/min (>60); Glucose 94 mg/dL (80-110); HEMOLYSIS < 15 (0-50); Potassium 4.4 mmol/L (3.4-5.1); Sodium 136 mmol/L (137-145)
== END ==
PROVIDERS: Family Provider Internal Medicine; PCP Internal Medicine; Visit Provider Nurse Practitioner
DX: I50.22 Chronic systolic (congestive) heart failure (principal)
CPT/HCPCS: 36415; 80048

== ENCOUNTER → 2019-11-27 13:07 | Outpatient (ROUT) | payer MEDICARE, SELFPAY ==
[2019-11-27 13:44] LABS: Alanine Aminotransferase 81 IU/L (<50); Aspartate Aminotransferase 61 IU/L (17-59)
== END ==
PROVIDERS: Family Provider Internal Medicine; PCP Internal Medicine; Visit Provider Family Medicine
DX: I50.22 Chronic systolic (congestive) heart failure (principal)
CPT/HCPCS: 84450; 84460

== ENCOUNTER → 2019-12-25 13:04 | Outpatient (ROUT) | payer MEDICARE, SELFPAY ==
[2019-12-25 13:53] LABS: Blood Urea Nitrogen 28 mg/dL (9-20); Calcium 9.1 mg/dL (8.4-10.2); Carbon Dioxide 29 mmol/L (22-32); Chloride 98 mmol/L (98-107); Estimated Glomerular Filt Rate 50.2 mL/min (>60); Glucose 94 mg/dL (80-110); HEMOLYSIS < 15 (0-50); Potassium 4.3 mmol/L (3.4-5.1); Sodium 138 mmol/L (137-145)
[2019-12-25 18:45] LABS: Alanine Aminotransferase 36 IU/L (<50); Aspartate Aminotransferase 36 IU/L (17-59)
== END ==
PROVIDERS: Family Provider Internal Medicine; PCP Internal Medicine; Visit Provider Family Medicine
DX: I50.9 Heart failure, unspecified (principal)
CPT/HCPCS: 80048; 84450; 84460

== ENCOUNTER → 2020-03-04 13:49 | Outpatient (ROUT) | payer MEDICARE, SELFPAY ==
[2020-03-04 14:06] LABS: Alanine Aminotransferase 28 IU/L (<50); Albumin 4.3 g/dL (3.5-5.0); Albumin Globulin Ratio 1.3 (1.0-2.8); Alkaline Phosphatase 123 U/L (38-126); Aspartate Aminotransferase 35 IU/L (17-59); BUN Creatinine Ratio 19.5 (6-22); Bilirubin Total 0.8 mg/dL (0.2-1.3); Blood Urea Nitrogen 29 mg/dL (9-20); Calcium 9.2 mg/dL (8.4-10.2); Carbon Dioxide 30 mmol/L (22-32); Chloride 100 mmol/L (98-107); Estimated Glomerular Filt Rate 46.8 mL/min (>60); Globulin 3.4 g/dL (1.7-4.1); Glucose 91 mg/dL (80-110); HEMOLYSIS < 15 (0-50); Potassium 4.5 mmol/L (3.4-5.1); Sodium 138 mmol/L (137-145); Total Protein 7.7 g/dL (6.3-8.2)
== END ==
PROVIDERS: Family Provider Internal Medicine; PCP Internal Medicine; Visit Provider Family Medicine
DX: I50.9 Heart failure, unspecified (principal)
CPT/HCPCS: 80053